=== PATIENT | male | born 1990 | race Caucasian/White ===

== ENCOUNTER 2018-09-16 01:15 | Observation (INO) ==
[2018-09-16] MEDS: NORMAL SALINE 1,000 ML IV PRN ×2 (01:25→09:37)
[2018-09-16 01:34] LABS: Hematocrit 50.1 % (42.0-52.0); Hemoglobin 16.8 gm/dL (13.5-18.0); Mean Cell Volume 84.6 fl (78-100); Mean Corpuscular Hemoglobin 28.4 pg (27-31); Mean Corpuscular Hgb Conc 33.5 g/dl (32-36); Mean Platelet Volume 9.9 fl (8-11.3); Neutrophil # 9.5 K/mm3 (1.3-6.0); Platelet Count 272 K/mm3 (150-450); Red Blood Count 5.92 M/mm3 (4.7-6.0); Red Cell Distribution Width 12.6 % (11.5-14.0); White Blood Count 14.8 K/mm3 (4.0-10.5)
[2018-09-16 01:47] LABS: Albumin * 4.4 gm/dl (3.4-5.0); Anion Gap 11.1 mmol/L (6.8-13.8); BUN/Creatinine Ratio 8.8 (9.0-21.6); Bilirubin, Total 0.4 mg/dL (0.0-1.1); Ca. Corrected For Albumin 8.1 mg/dL (8.4-10.2); Calcium * 8.7 mg/dL (7.9-10.9); Carbon Dioxide 26.8 mmol/L (24-32.6); Potassium 3.9 mmol/L (3.4-4.6); Total Protein 8.4 gm/dL (6.2-8.2)
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
[2018-09-16 03:26] LABS: Urine Bilirubin Negative (NEGATIVE); Urine Blood 250 /ul (NEGATIVE); Urine Ketone Negative (NEGATIVE); Urine Nitrite Negative (NEGATIVE); Urine Protein 30 mg/dL (NEGATIVE); Urine Urobilinogen Normal (NORMAL)
[2018-09-16] MEDS ORDERED: ONDANSETRON HCL/PF 2 MG/ML VIAL IV PRN ×2 (03:27→06:39)
[2018-09-16] MEDS ORDERED: ONDANSETRON HCL/PF 2 MG/ML VIAL ONE (03:36)
[2018-09-16] MEDS ORDERED: MORPHINE SULFATE 4 MG/ML SYRG ONE (03:36)
[2018-09-16] MEDS: MORPHINE SULFATE 4 MG/ML SYRG IV PRN ×2 (03:43→05:35)
[2018-09-16 03:49] LABS: Urine Appearance Clear (CLEAR); Urine Color Yellow; Urine RBC None Seen /hpf (0-5); Urine WBC None Seen /hpf (0-5)
[2018-09-16 03:50] LABS: Cocaine Ur Negative (NEGATIVE); Urine Bacteria None Seen; Urine Barbiturate Negative (NEGATIVE); Urine Benzodiazepines Negative (NEGATIVE); Urine Opiates Negative (NEGATIVE); Urine PCP Negative (NEGATIVE); Urine THC Negative (NEGATIVE)
[2018-09-16] MEDS: HYDROcodone/ACETAMINOPHEN 1 EACH TABLET PO PRN ×2 (07:42→12:17)
[2018-09-16] MEDS ORDERED: NORMAL SALINE 500 ML IV ONE ×2 (08:05→08:54)
[2018-09-16] MEDS ORDERED: ACETAMINOPHEN 325 MG TABLET PO PRN (12:01)
[2018-09-16] MEDS ORDERED: ONDANSETRON HCL 4 MG TABLET PO PRN (12:13)
[2018-09-16] MEDS ORDERED: HYDROcodone/ACETAMINOPHEN 1 EACH TABLET PO PRN (12:13)
[2018-09-16] MEDS ORDERED: NAPROXEN 500 MG TABLET PO SCH (12:15)
[2018-09-16] MEDS ORDERED: oxyCODONE HCL 5 MG TABLET PO PRN ×2 (12:45)
[2018-09-16] MEDS ORDERED: NICOTINE 14 MG PATC TD SCH (16:00)
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
[2018-09-16] MEDS ORDERED: NICOTINE 21 MG PATC TD SCH (16:15)
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
[2018-09-16 17:20] VITALS: BP 141/77
== END 2018-09-16 17:40 | disposition short-term general hospital (02) ==
LOC: MS 01:15 → ER 01:15 → MS 04:00
PROVIDERS: ADMIT Internal Medicine; ATTEND Internal Medicine
CPT/HCPCS: 36415; 70450; 71020; 71046; 71260; 72125; 72128; 72131; 74177; 80053; 80307; 80320; 81001; 83690; 85025; 86850; 86900; 87081; 96361; 96374; 96375; 96376; 99285; G0378; G0479; G0481; J2405